=== PATIENT | male | born 1980 | race Caucasian/White ===

== ENCOUNTER 2023-03-11 01:38 | Emergency (ER) | payer MEDICAID ==
[~2023-03-11] VITALS: Ht 170.2 cm; Wt 88.5 kg
[2023-03-11] MEDS ORDERED: OXCA150T5 PO (02:01)
[2023-03-11] MEDS ORDERED: ERYT333T78 PO (02:43)
[2023-03-11 03:04] VITALS: BP 127/75; TEMP 207.5; O2SAT 97
== END 2023-03-11 02:57 | disposition home or self-care (01) ==
LOC: ER 01:47
DX: S62.141A Displaced fracture of body of hamate [unciform] bone, right wrist, initial encounter for closed fracture (principal); I88.9 Nonspecific lymphadenitis, unspecified; Z79.2 Long term (current) use of antibiotics; Z79.899 Other long term (current) drug therapy; W22.8XXA Striking against or struck by other objects, initial encounter; Y93.89 Activity, other specified; Y92.89 Other specified places as the place of occurrence of the external cause; Y99.8 Other external cause status
CPT/HCPCS: 73130; A4663

== ENCOUNTER 2023-03-15 01:51 | Emergency (ER) | payer MEDICAID ==
[~2023-03-15] VITALS: Ht 170.2 cm; Wt 89.4 kg
[~2023-03-15 01:51] MED LIST: ERYT333T78 PO; OXCA150T5 PO
[2023-03-15] MEDS ORDERED: DEXAMETHASONE 4 MG TABLET ONE (02:28)
[2023-03-15] MEDS ORDERED: CARBAMAZEPINE 200 MG TABLET ONE (02:28)
[2023-03-15] MEDS ORDERED: DEXAMETHASONE 4 MG TABLET PO ONE (02:30)
[2023-03-15] MEDS ORDERED: METOCLOPRAMIDE HCL 10 MG TABLET PO ONE (02:30)
[2023-03-15] MEDS ORDERED: CARBAMAZEPINE 200 MG TABLET PO ONE (02:30)
[2023-03-15] MEDS ORDERED: METOCLOPRAMIDE HCL 10 MG TABLET ONE (02:39)
[2023-03-15] MEDS ORDERED: ACETAMINOPHEN ES 500 MG TABLET ONE (02:39)
[2023-03-15] MEDS ORDERED: ACETAMINOPHEN ES 500 MG TABLET PO ONE (02:45)
[2023-03-15] MEDS ORDERED: CARB200C6 PO (05:58)
[2023-03-15 06:04] VITALS: BP 125/74; TEMP 98; O2SAT 96
== END 2023-03-15 06:05 | disposition home or self-care (01) ==
LOC: ER 01:52
DX: S06.0X0A Concussion without loss of consciousness, initial encounter (principal); G50.0 Trigeminal neuralgia; F17.210 Nicotine dependence, cigarettes, uncomplicated; Z79.2 Long term (current) use of antibiotics; Z79.899 Other long term (current) drug therapy; W22.8XXA Striking against or struck by other objects, initial encounter; Y93.89 Activity, other specified; Y92.89 Other specified places as the place of occurrence of the external cause; Y99.8 Other external cause status
CPT/HCPCS: 99284; 70450; J8540; A4663; A9150; J8597